=== PATIENT | female | born 1980 | race Caucasian/White ===

== ENCOUNTER 2023-08-18 18:10 | Emergency (ER) | payer OTHER, SELFPAY ==
[2023-08-18 18:34] VITALS: BP 117/53; PULSE 81; RESP 18; TEMP 36.2; O2SAT 98; BMI 20.7
--- NOTE | 2023-08-18 18:36 | ED_ITS ---
HPI - Abdominal Pain General Chief Complaint: Abdominal Pain Stated Complaint: upper abd pain Time Seen by Provider: 08/18/23 23:08 Source: patient and family (daughter) Mode of arrival: ambulatory Limitations: no limitations History of Present Illness HPI narrative: Patient is a 43-year-old female presenting to the emergency department with complaint of epigastric pain which began today. Describes pain as epigastric burning sensation which waxes and wanes. Reports nausea but denies vomiting or diarrhea. Denies fevers. Did not take any OTC medications for her symptoms. She also complains of lower back pain which she describes as spasming, worst in the mornings. [place] as though back pain worsened on Tuesday, reports that she felt a pulling sensation at that time but denies fall or other trauma. Denies radiation of pain down legs. Denies any weakness, numbness, tingling. Denies saddle anesthesia or bowel or bladder incontinence. Has only taken Tylenol for her back pain. She states that her epigastric pain and back pain are separate, pain does not radiate through abdomen to back. Denies dysuria, hematuria, or other urinary symptoms. MD elicited complaint: abdominal pain and other Pertinent past history: none Radiation: epigastric and back Migration to: no migration Exacerbating factors: movement Relieving factors: rest Context: sick contacts Associated symptoms: nausea Treatments prior to arrival: other Related Data Previous Rx's Medication Instructions Recorded cyclobenzaprine 5 mg tablet 5 mg PO TID PRN muscle spasm #12 08/19/23 tabs famotidine 20 mg tablet 20 mg PO DAILY #14 tabs 08/19/23 lidocaine 5 % topical patch 1 patch topical DAILY #15 ea 08/19/23 Allergies Allergy/AdvReac Type Severity Reaction Status Date / Time No Known Allergies Allergy Verified 08/18/23 18:39 Review of Systems Review of Systems As per HPI. Yes all other systems are reviewed and are negative Constitutional: Reports as per HPI [facility] Social History Social History Advance Directives: No Advance Directives Information Provided: Yes Physical Exam ED Vital Signs: Vital Signs - 24 hr 08/18/23 18:34 08/18/23 23:05 08/19/23 00:32 Temperature 97.2 F 98.7 F Pulse Rate 81 70 Respiratory Rate 18 16 Blood Pressure 117/53 L 121/51 L Pulse Oximetry 98 87 L 100 Oxygen Delivery Method Room Air Room Air Room Air BMI result Body Mass Index 20.7 Vital signs have been reviewed and appear to be correct. Blood pressure normal. Heart rate normal. Respiratory rate normal. Temperature normal. Oxygen saturation normal. Const General: cooperative, healthy appearing and no acute distress Orientation/consciousness: oriented to person, oriented to place, oriented to time and patient oriented x3 Limitations: no limitations HENMT Head: Yes normocephalic and Yes atraumatic Ears: external ears normal General nose exam: Normal external nose present Face and sinus: Yes face symmetric Mouth: oropharynx normal and moist mucous membranes Throat: Yes uvula midline Eyes Pupils: Equal, round and reactive pupils present Neck Neck: Yes normal visual inspection, Yes no meningeal signs and Yes supple Resp Effort & Inspection: normal respiratory effort and able to speak in complete sentences Auscultation: clear to auscultation bilaterally Cardio Rate: regular rate Rhythm: regular rhythm Heart sounds: S1 normal heart sound present and S2 normal heart sound present GI Palpation (GI): Soft to palpation and nontender Auscultation: normoactive bowel sounds General: Yes no CVA tenderness Back/Spine/Pelvis Back: no CVA tenderness Cervical Spine: normal cervical lordosis, cervical ROM normal, No Cervical spine tenderness and No step off deformity Thoracic/Lumbar Spine: thoracic and lumbar spine normal to inspection, thoraco- lumbar ROM normal, straight leg raise negative bilaterally, pain with thoraco- lumbar ROM, paraspinal muscle tenderness bilaterally in the lower thoracic and in the upper lumbar, No thoracic spinal tenderness and No lumbar spinal tenderness Pelvis: no pain with anterior-posterior compression and no pain with lateral compression Sacroiliac joints: bilaterally nontender Skin General skin exam: elasticity normal and turgor normal Neuro General: oriented to person, oriented to place, oriented to time, patient oriented x3, gait normal, tone normal, moves all extremities, Normal light touch and pain sensation, no meningeal signs, no focal motor deficits, CN's II-XI intact bilaterally and deep tendon reflexes 2+ bilaterally Cranial nerves: Yes Equal, round and reactive pupils present Cognition (Neuro): normal cognition Motor exam (neuro): 5/5 motor strength present throughout, Normal motor muscle tone present throughout and Motor abnormalities not present Sensory Exam: Normal double simultaneous stimulation for sensation Extrem General: Yes full ROM, Yes no pedal edema and Yes no calf tenderness Psych Mental Status: mental status grossly normal Affect: normal affect Thought process: Normal thought process present Course Course Course Narrative: Epigastric pain radiating into left abdomen low back pain x 1 month with recent injury on Tuesday and felt as if she pulled a muscle on the right. States she has had difficulty with back pain every morning and that she has to 'wiggle and slide to the ground then struggle to get up from the floor'. Cough recently with family members who have been ill. No diagnosed hx GERD but states intermittent feeling of acid reflux RME: NAD, A&Ox4, MAEx4, LS CTA, HR RRR, abd SNT Medical Decision Making Medical Decision Making [facility] Narrative: Patient is a 43-year-old female presenting to the emergency department with complaint of epigastric pain which began today. On exam patient is awake, A+Ox3, VS WNL, afebrile, normal neurological exam without focal deficits, physical exam findings as above. Given reported symptoms and physical exam findings, initial differential includes GERD vs gastritis vs PUD, viral illness, less likely ACS, lumbar strain versus spasm, UTI. Do not suspect fracture as pain denies any fall or other trauma. No red flag findings concerning for spinal epidural abscess, cauda equina, cord compression. Labs notable for no leukocytosis, mild anemia, no significant electrolyte abnormalities, negative troponin. Viral swabs negative. Urinalysis notable only for trace leukocytes, 0-5 WBCS, 11-20 epithelials so likely contamination. Will medicate patient with cyclobenzaprine, maalox, and viscous lidocaine. Discussed with patient that she may require physical therapy for ongoing back pain, and will need to make appointment with PCP for this. Patient reports improvement in both epigastric and back pain after medications. Will discharge home with Flexeril, lidocaine patches, famotidine. Will refer to GI for further evaluation of epigastric pain. Return precautions discussed. Patient verbalized understanding of and agreement with plan. Differential Diagnosis Differential Diagnoses: The differential diagnosis associated with the presentation includes As per [facility] Lab Data [facility] Lab Attestation statement: I reviewed the patient's lab results. As per [facility] 08/18/23 18:59 08/18/23 18:59 Labs: Lab Results 08/18/23 08/18/23 Range/Units 18:59 23:07 WBC 5.7 (4.8-10.8) X10*3/uL RBC 4.24 (4.20-5.50) X10*6/uL Hgb 11.0 L (12.0-16.0) g/dl Hct 34.4 L (37.0-47.0) % MCV 81.1 (80.0-98.0) fL MCH 25.9 L (27.0-33.0) pg MCHC 32.0 (31.0-35.0) g/dl RDW 14.6 (11.0-16.0) % Plt Count 317 (160-400) X10*3/uL MPV 10.6 (9.4-12.3) fL Immature Gran % (Auto) 0.2 (0.0-0.4) % Neut % (Auto) 40.5 L (45-73) % Lymph % (Auto) 44.5 H (20-40) % [place] % (Auto) 9.5 (2-11) % Eos % (Auto) 4.4 H (0-4) % Baso % (Auto) 0.9 (0-2) % Lymph # (Auto) 2.5 (1.2-4.9) X10*3/uL [place] # (Auto) 0.5 (0.1-1.2) X10*3/uL Eos # (Auto) 0.3 (0.0-0.4) X10*3/uL Baso # (Auto) 0.1 (0.0-0.2) X10*3/uL Abs Immat Gran (auto) 0.01 (0.00-0.03) X10*3/uL Absolute Neuts (auto) 2.3 (2.0-8.3) x10*3/uL Absolute Nucleated RBC 0.000 (0.0-0.012) X10*3/uL Nucleated RBC % (auto) 0.0 (0.0-0.2) /100WBC Sodium 138 (135-145) mmol/L Potassium 3.6 (3.3-5.1) mmol/L Chloride 106 (96-108) mmol/L Carbon Dioxide 25 (22-29) mmol/L Anion Gap 11 L (12-20) BUN 9 (9-16) mg/dL Creatinine 0.76 (0.5-1.4) mg/dL Estim Creat Clear Calc 72.0 Estimated GFR > 60 Random Glucose 86 (60-115) mg/dL Calcium 8.9 (8.4-10.2) mg/dL Total Bilirubin 0.3 (0.0-1.0) mg/dL AST 15 (5-31) U/L ALT 9 (0-31) U/L Alkaline Phosphatase 57 (39-117) U/L Troponin I High Sens < 2.7 (<3.5-17.0) ng/L Total Protein 6.9 (6.5-8.0) g/dL Albumin 3.5 (3.5-5.0) g/dL Urine Color Yellow Urine Appearance Cloudy Urine pH 8.5 (5.0-9.0) Ur Specific [place] 1.020 (1.005-1.025) Urine Protein Negative (Neg-Trace) mg/dL Urine Glucose (UA) Negative (Negative) mg/dL Urine Ketones Negative (Negative) mg/dL Urine Blood Negative (Negative) Urine Nitrite Negative (Negative) Ur Leukocyte Esterase Trace H (Negative) Urine RBC 0-2 (0-2) /HPF Urine WBC 0-5 (0-5) /HPF Ur Squamous Epith Cells 11-20 (0-2) /HPF Urine Bacteria 3+ (None Seen) Hyaline Casts 0-2 (0-2) /LPF COVID-19 (DAVID) Negative (Negative) COVID-19 Clin Com See Note Influenza Type A (SUSHMA) Negative (Negative) Influenza Type B (SUSHMA) Negative (Negative) Influenza A & B Note See Note Independent Interpretation I performed an independent interpretation of an: EKG (normal sinus rhythm, rate 66 bpm, normal AR and QT intervals, no evidence of STEMI) External Record Review External record reviewed: Inpatient record, Office record and Outpatient record Prescription Management I considered prescription management with: Pain Medication and Other Medications Administered Discontinued Medications Generic Name Dose Route Start Last Admin Trade Name Freq PRN Reason Stop Dose Admin Al Hydroxide/Mg Hydroxide 30 ml 08/19/23 00:12 08/19/23 00:46 Magnesium Hydrox/Alum Hydrox 30 Ml Oral.Susp PO 08/19/23 00:13 30 ml ONCE ONE Administration Cyclobenzaprine HCl 10 mg 08/19/23 00:13 08/19/23 00:46 Cyclobenzaprine Hcl 10 Mg Tablet PO 08/19/23 00:14 10 mg ONCE ONE Administration Lidocaine HCl 5 ml 08/19/23 00:12 08/19/23 00:46 Lidocaine Hcl Viscous 2 % 15 Ml Solution MUCOUS MEM 08/19/23 00:13 5 ml ONCE ONE Administration Discharge Plan Discharge Clinical Impression: Acute epigastric pain, Lumbar paraspinal muscle spasm Instructions: Muscle Spasm (ED), Back Pain (ED), Epigastric Pain (ED) Additional Instructions: You have been evaluated in the emergency department today for abdominal and back pain. Your evaluation did not show evidence of medical conditions requiring emergent intervention at this time. You are being prescribed a muscle relaxer for your back pain. You can also take 600mg ibuprofen or 650mg Tylenol every 6 hours. If necessary, you can alternate these medications ever 3 hours. For example, at noon take Tylenol, then at 3pm take ibuprofen, then at 6pm take Tylenol, etc. You are also being started on a medication called famotidine for your epigastric pain. Please take all medications as prescribed. Avoid spicy, fatty, and acidic foods. Please schedule an appointment with your primary care physician, as your may benefit from physical therapy for your back pain. You are being referred to gastroenterology for further evaluation of your epigastric pain, please call their office to schedule an appointment. Return to the emergency department if you experience worsening or uncontrolled pain, fevers 100.4? F or greater, recurrent vomiting, inability to tolerate food or fluids by mouth, bloody stools or vomit, black or tarry stools, new weakness, numbness, or tingling to your legs, numbness to your groin, loss of bowel or bladder control, or any other concerning symptoms. Prescriptions: New cyclobenzaprine 5 mg tablet 5 mg PO TID PRN (Reason: muscle spasm) Qty: 12 0RF famotidine 20 mg tablet 20 mg PO DAILY Qty: 14 0RF lidocaine 5 % adhesive patch,medicated 1 patch topical DAILY Qty: 15 0RF Rx Instructions: leave on most painful area for up to 12 hrs Referrals: [facility] [Provider Group]
--- NOTE | 2023-08-18 18:40 | ECG_ITS ---
Test Reason : EPIGASTRIC PAIN Blood Pressure : / mmHG Vent. Rate : 066 BPM Atrial Rate : 066 BPM P-R Int : 142 ms QRS Dur : 062 ms QT Int : 404 ms P-R-T Axes : 070 020 008 degrees QTc Int : 423 ms Normal sinus rhythm Otherwise normal ECG No previous ECGs available Referred By: Mer Pimentel Electronically Signed By:MATEO MANN MD
[2023-08-18 19:06] LABS: MANUAL DIFF FLAG NO
[2023-08-18 19:09] LABS: Basophils Absolute Auto 0.1 X10*3/uL (0.0-0.2); Basophils Percent Auto 0.9 % (0-2); Eosinophils Absolute Auto 0.3 X10*3/uL (0.0-0.4); Eosinophils Percent Auto 4.4 % (0-4); Hematocrit 34.4 % (37.0-47.0); Imm Gran Abs Auto 0.01 X10*3/uL (0.00-0.03); Imm Gran Pct Auto 0.2 % (0.0-0.4); Lymphocytes Absolute Auto 2.5 X10*3/uL (1.2-4.9); Lymphocytes Percent Auto 44.5 % (20-40); Mean Corpuscular Hemoglobin 25.9 pg (27.0-33.0); Mean Corpuscular Volume 81.1 fL (80.0-98.0); Mean Platelet Volume 10.6 fL (9.4-12.3); Monocytes Absolute Auto 0.5 X10*3/uL (0.1-1.2); Monocytes Percent Auto 9.5 % (2-11); Neutrophils Absolute Auto 2.3 x10*3/uL (2.0-8.3); Neutrophils Percent Auto 40.5 % (45-73); Platelet Count 317 X10*3/uL (160-400); Red Blood Count 4.24 X10*6/uL (4.20-5.50); Red Cell Distribution Width 14.6 % (11.0-16.0); White Blood Count 5.7 X10*3/uL (4.8-10.8)
[2023-08-18 19:22] LABS: Alanine Aminotransferase 9 U/L (0-31); Albumin Level 3.5 g/dL (3.5-5.0); Alkaline Phosphatase 57 U/L (39-117); Anion Gap 11 (12-20); Aspartate Amino Transferase 15 U/L (5-31); Bilirubin Total 0.3 mg/dL (0.0-1.0); Blood Urea Nitrogen 9 mg/dL (9-16); Calcium 8.9 mg/dL (8.4-10.2); Carbon Dioxide 25 mmol/L (22-29); Chloride 106 mmol/L (96-108); Estimated Glomerular Filt Rate > 60; Glucose Random 86 mg/dL (60-115); Potassium 3.6 mmol/L (3.3-5.1); Sodium 138 mmol/L (135-145); Total Protein 6.9 g/dL (6.5-8.0)
[2023-08-18 19:29] LABS: COVID-19 Test Negative (Negative); IDNOW Serial# 58CA691E; Troponin-I High Sensitivity < 2.7 ng/L (<3.5-17.0)
[2023-08-18 19:38] LABS: IDNOW Serial# 9DB6401D; Influenza A Negative (Negative); Influenza B2 Negative (Negative)
[2023-08-18 23:05] VITALS: BP 121/51; PULSE 70; RESP 16; TEMP 37.1; O2SAT 87
[2023-08-18 23:12] LABS: Appearance Urine Cloudy; Color Urine Yellow; Glucose Urine UA Negative (Negative); Leukocyte Esterase Urine Trace (Negative); Nitrite Urine Negative (Negative); PH 8.5 (5.0-9.0); UMIC TRIGGER UACC YES; Urine Blood Negative (Negative); Urine Ketones Negative (Negative); Urine Protein Negative (Neg-Trace)
[2023-08-18 23:17] LABS: Bacteria Urine 3+ (None Seen); Hyaline Casts Urine 0-2 /LPF (0-2); RBC Urine 0-2 /HPF (0-2); WBC Urine 0-5 /HPF (0-5)
[2023-08-19 00:32] VITALS: O2SAT 100
[2023-08-19] MEDS: Cyclobenzaprine HCl 10 MG TABLET PO (00:46)
[2023-08-19] MEDS: Magnesium Hydrox/Alum Hydrox 30 ML ORAL.SUSP PO (00:46)
[2023-08-19] MEDS: Lidocaine HCl Viscous 2 % 15 ML SOLUTION 5 ML MUCOUS MEM (00:46)
[2023-08-19 01:37] VITALS: BP 120/74; PULSE 70; RESP 18; TEMP 36.9; O2SAT 99
== END 2023-08-19 01:39 | disposition home or self-care (01) ==
PROVIDERS: Nurse Practitioner Family; Emergency Provider Student in an Organized Health Care Education/Training Program
DX: R10.13 Epigastric pain (principal); M62.830 Muscle spasm of back; Z11.52 Encounter for screening for COVID-19
CPT/HCPCS: 80053; 81001; 84484; 85025; 87502; 87635; 93005; 99283; 99284

== ENCOUNTER → 2023-08-18 18:40 | Outpatient (BNV) | payer OTHER, SELFPAY | PROVIDERS: Emergency Provider Student in an Organized Health Care Education/Training Program; Visit Provider Internal Medicine Cardiovascular Disease | DX: R10.13 Epigastric pain (principal) | CPT/HCPCS: 93010 ==